=== PATIENT | female | born 1990 | race Two or more races ===

== ENCOUNTER 2016-10-25 15:56 | Emergency (ER) | payer OTHER ==
[~2016-10-25] VITALS: Ht 162.6 cm; Wt 90.7 kg
[2016-10-25] MEDS ORDERED: LORAZEPAM INJ 2 MG/ML VIAL ONE (16:09)
[2016-10-25] MEDS ORDERED: ZIPRASIDONE MESYLATE 20 MG/VIAL VIAL IM ONE ×3 (16:09→17:00)
--- NOTE | 2016-10-25 16:12 | NUR ---
PT BIB [place] WITH [employer] FOR BIZARRE BEHAVIOR. PT WAS FOUND RUNNING THROUGH TRAFFIC WITHOUT A SHIRT ON. PT IS COMBATIVE, AGGRESSIVE, UNWILLING TO ANSWER QUESTIONS. ATTEMPTED TO KICK AND SPIT ON STAFF DURING ASSESSMENT. PLACED ON 4 POINT RESTRAINTS PER MD. RESP EVEN UNLABORED. IN ER BED 14.
[2016-10-25] MEDS ORDERED: LORAZEPAM INJ 2 MG/ML VIAL IM ONE (16:30)
[2016-10-25 16:55] LABS: BASOPHILS % (AUTO) 0.5 % (0.0-2.0); EOSINOPHILS # (AUTO) 0.3 /CMM (0.0-0.7); EOSINOPHILS % (AUTO) 3.2 % (0.0-6.0); HEMATOCRIT 39 % (33-45); HEMOGLOBIN 13.3 g/dL (11.5-14.8); LYMPHOCYTES # (AUTO) 2.5 /CMM (0.8-4.8); LYMPHOCYTES % (AUTO) 29.9 % (20.0-44.0); MEAN CORPUSCULAR HEMOGLOBIN 32 PG (26.0-33.0); MEAN CORPUSCULAR HGB CONC 34 g/dl (31.0-36.0); MEAN CORPUSCULAR VOLUME 94 fL (82-100); MONOCYTES # (AUTO) 0.6 /CMM (0.1-1.30); MONOCYTES % (AUTO) 6.7 % (2.0-12.0); NEUTROPHILS # (AUTO) 4.9 /CMM (1.8-8.9); NEUTROPHILS % (AUTO) 59.7 % (43.0-81.0); PLATELET COUNT (AUTO) 251 /CMM (150-450); RDW COEFFICIENT OF VARIATION 13.9 (11.5-15.0); RED BLOOD CELL COUNT(AUTO) 4.16 MIL/uL (4.0-5.2); WHITE BLOOD COUNT (AUTO) 8.3 K/uL (4.3-11.0)
--- NOTE | 2016-10-25 16:59 | NUR ---
CREATIVE DESIGNER WAS ABLE TO DRAW BLOOD ON 3RD ATTEMPT. PT DID NOT WITHDRAW FROM PAIN. SEDATED. ON MONITOR. RESP EVEN UNLABORED.
[2016-10-25 17:06] LABS: CALCIUM, SERUM 8.3 mg/dL (8.5-10.1); CREATININE 0.8 mg/dL (0.6-1.3); POTASSIUM 3.7 mmol/L (3.5-5.1)
[2016-10-25 17:12] LABS: ALBUMIN 4.1 g/dL (3.4-5.0); BILIRUBIN,DIRECT 0.1 mg/dL (0.0-0.2); BILIRUBIN,TOTAL 0.3 mg/dL (0.2-1.0); TOTAL PROTEIN, SERUM 7.5 g/dL (6.4-8.2)
[2016-10-25 17:13] LABS: SALICYLATE 1.7 mg/dL (2.8-20.0)
[2016-10-25 18:33] LABS: APPEARANCE,URINE Clear (CLEAR); BILIRUBIN,URINE Negative (NEGATIVE); BLOOD, URINE Negative Ery/uL (NEGATIVE); COLOR,URINE Yellow (YELLOW); KETONES,URINE Negative (NEGATIVE); LEUKOCYTE ESTERASE ,URINE Negative (NEGATIVE); NITRITE, URINE Negative (NEGATIVE); PH,URINE 5.5 (5.0-8.0); PROTEIN,URINE 30 mg/dl (NEGATIVE); UGLUCOSE Negative (NEGATIVE); UROBILINOGEN,URINE 0.2 EU/dL (0.2)
--- NOTE | 2016-10-25 18:33 | NUR ---
RESTING QUIETLY. VSS. IN AND OUT CATH PERFORMED FOR NO URINE. SAMPLE SENT TO LAB.
[2016-10-25 18:49] LABS: BACTERIA,URINE None seen /HPF (None Seen); RBC,URINE NONE SEEN /HPF (0-2); SQUAMOUS EPITHELIAL CELL,UR Rare /HPF (None Seen); WBC,URINE NONE SEEN /HPF (0-3)
--- NOTE | 2016-10-25 19:58 | NUR ---
PT NOW EASILY AROUSABLE TO VOICE, A/OX4, BUT FALLS ASLEEP QUICKLY. MD UPDATED. VSS. ALL NEEDS ATTENDED TO.
--- NOTE | 2016-10-25 21:42 | NUR ---
PT PROVIDED WITH SANDWICH AND WATER. A/OX4. DENIES SI. DOES NOT KNOW WHY SHE WAS BROUGHT IN OR REMEMBER RUNNING IN TRAFFIC. ANSWERING QUESTIONS APPROPRIATELY.
--- NOTE | 2016-10-25 21:59 | NUR ---
Patient discharged to home in stable condition. Written and verbal after care instructions given. Patient verbalizes understanding of instruction. AMBULATORY WITH STEADY GAIT.
[2016-10-25 22:01] VITALS: BP 109/68
== END 2016-10-25 22:02 | disposition home or self-care (01) ==
LOC: ER 16:00 → EDBD 16:00 → ER 22:02
DX: R40.4 Transient alteration of awareness (principal); T43.625A Adverse effect of amphetamines, initial encounter; F10.129 Alcohol abuse with intoxication, unspecified; Y92.89 Other specified places as the place of occurrence of the external cause
CPT/HCPCS: 36415; 80048-TC; 80076-TC; 80305; 81000-TC; 84702-TC; 85025-TC; A4606; G0480; J2060; J3486; Z7610

== ENCOUNTER 2017-03-05 05:55 | Emergency (ER) | payer MEDICAID, OTHER ==
[~2017-03-05] VITALS: Ht 160 cm; Wt 65.8 kg
[2017-03-05 05:55] VITALS: BP 101/71
== END 2017-03-05 06:42 | disposition home or self-care (01) ==
LOC: ER 05:58
DX: R51 Headache (principal); F32.9 Major depressive disorder, single episode, unspecified; F17.200 Nicotine dependence, unspecified, uncomplicated
CPT/HCPCS: A4606; Z7502; Z7610